=== PATIENT | female | born 1970 | race Caucasian/White ===

== ENCOUNTER 2021-05-27 13:33 | Emergency (ER) | payer SELFPAY ==
[~2021-05-27] VITALS: Ht 157.5 cm; Wt 63.5 kg
--- NOTE | 2021-05-27 13:43 | NUR ---
bs=[id number], md notified
[2021-05-27] MEDS ORDERED: IV NORMAL SALINE 1000 ML BAG IV ONE (13:45)
--- NOTE | 2021-05-27 14:03 | NUR ---
PT IS IN ROOM #1A. DR DURAN EVALUATED THE PT.
[2021-05-27 14:12] LABS: HEMATOCRIT 38.7 % (31.2-41.9); MEAN CORPUSCULAR HEMOGLOBIN 28.7 uug (24.7-32.8); MEAN CORPUSCULAR VOLUME 85.8 fL (75.5-95.3); PLATELET COUNT (AUTO) 247 K/uL (179-408)
[2021-05-27 14:19] LABS: CREATININE 0.6 mg/dL (0.6-1.3); POTASSIUM 3.4 mmol/L (3.5-5.1)
[2021-05-27] MEDS ORDERED: ASPIRIN 81 MG TAB.CHEW PO ONE (14:30)
[2021-05-27] MEDS ORDERED: ASPIRIN 81 MG TAB.CHEW ONE (15:24)
[2021-05-27] MEDS ORDERED: AMLO5TAB4 PO (16:19)
--- NOTE | 2021-05-27 16:40 | NUR ---
PT DECIDED TO LEAVE HOSPITAL AMA. DR DURAN EXPLAINED ALL RISKS OF LEAVING HOSPITAL AMA TO THE PT. PT VERBALIZED FULL UNDERSTANDING. PT SIGNED AMA FORM AND LEFT HOSPITAL AMA BY TAXI.
[2021-05-27 16:44] VITALS: BP 151/71
== END 2021-05-27 16:46 | disposition left against medical advice (07) ==
LOC: ER 13:33
DX: R42 Dizziness and giddiness (principal); R07.9 Chest pain, unspecified; R94.31 Abnormal electrocardiogram [ECG] [EKG]; I10 Essential (primary) hypertension; R51.9 Headache, unspecified; Z82.49 Family history of ischemic heart disease and other diseases of the circulatory system; Z53.29 Procedure and treatment not carried out because of patient's decision for other reasons
CPT/HCPCS: 36415; 70030-TC; 70450; 71045; 85025; 93005; A4663; J7030